=== PATIENT | male | born 1960 | race Caucasian/White ===

== ENCOUNTER 2018-01-03 12:10 | Outpatient (CLI) | payer OTHER ==
[~2018-01-03] VITALS: Ht 254 cm; Wt 108.0 kg
[~2018-01-03 12:10] MED LIST: COZAAR100 MG
== END 2018-01-03 14:47 | disposition home or self-care (01) ==
LOC: OFIC 805 12:10
DX: K21.9 Gastro-esophageal reflux disease without esophagitis (principal); R13.19 Other dysphagia; M54.2 Cervicalgia

== ENCOUNTER 2018-06-28 12:51 | Emergency (ER) | payer OTHER ==
[~2018-06-28] VITALS: Ht 177.8 cm; Wt 104.3 kg
[2018-06-28] MEDS ORDERED: HYZAAR 100-251 EACH (13:07)
== END 2018-06-28 14:40 | disposition home or self-care (01) ==
LOC: ER 12:51
DX: G44.209 Tension-type headache, unspecified, not intractable (principal)

== ENCOUNTER 2021-07-28 08:53 | Outpatient (CLI) | payer OTHER ==
[~2021-07-28 08:53] MED LIST changes: +HYZAAR 100-251 EACH
== END 2021-07-28 09:23 | disposition home or self-care (01) ==
LOC: RAD 08:53
PROVIDERS: ATTEND Urology
DX: R22.1 Localized swelling, mass and lump, neck (principal); R22.2 Localized swelling, mass and lump, trunk

== ENCOUNTER 2021-08-08 13:05 | Outpatient (CLI) | payer OTHER | END 2021-08-08 13:06 | disposition home or self-care (01) | LOC: LAB 13:05 | PROVIDERS: ATTEND Radiology Diagnostic Radiology | DX: Z12.11 Encounter for screening for malignant neoplasm of colon (principal) ==

== ENCOUNTER 2021-08-11 09:46 | Outpatient (CLI) | payer OTHER | END 2021-08-11 09:57 | disposition home or self-care (01) | LOC: TOM 09:46 | PROVIDERS: ATTEND Colon & Rectal Surgery | DX: K21.9 Gastro-esophageal reflux disease without esophagitis (principal); Z12.11 Encounter for screening for malignant neoplasm of colon; R10.32 Left lower quadrant pain ==

== ENCOUNTER 2021-10-21 06:41 | Day surgery (SDC) | payer OTHER ==
[~2021-10-21] VITALS: Ht 177.8 cm; Wt 104.3 kg
[~2021-10-21 06:41] MED LIST changes: +HYDROCHLOROTHIA25 MG PO; +ZEGERID 40 MG1 EACH PO
== END 2021-10-21 10:45 | disposition home or self-care (01) ==
LOC: CIR.AMB 06:41
PROVIDERS: ATTEND Surgery
DX: L72.0 Epidermal cyst (principal); D17.1 Benign lipomatous neoplasm of skin and subcutaneous tissue of trunk; I10 Essential (primary) hypertension; K21.9 Gastro-esophageal reflux disease without esophagitis; Z86.16 Personal history of COVID-19; Z87.891 Personal history of nicotine dependence; E66.9 Obesity, unspecified

== ENCOUNTER 2022-12-18 08:49 | Outpatient (CLI) | payer OTHER | END 2022-12-18 09:07 | disposition home or self-care (01) | LOC: TOM 08:49 | PROVIDERS: ATTEND Urology | DX: N20.0 Calculus of kidney (principal) ==

== ENCOUNTER 2023-03-30 10:51 | Emergency (ER) | payer OTHER ==
[~2023-03-30] VITALS: Ht 177.8 cm; Wt 98.0 kg
== END 2023-03-30 17:19 | disposition home or self-care (01) ==
LOC: ER 10:51
DX: M54.9 Dorsalgia, unspecified (principal)

== ENCOUNTER 2024-12-28 13:00 | Emergency (ER) | payer OTHER ==
[~2024-12-28] VITALS: Ht 175.3 cm; Wt 102.1 kg
[2024-12-28 13:46] VITALS: BP 121/77; O2SAT 99
[2024-12-28] MEDS ORDERED: CEFTRIAXONE SODIUM 1,000 MG VIAL IM ONE (16:00)
[2024-12-28 16:24] LABS: BASO % 0.2 % (0.1-1.2); EOS # 0.21 (0.04-0.54); EOS % 2.6 % (0.7-7.0); LYMPH # 2.41 (1.18-3.74); LYMPH % 29.8 % (19.3-53.1); MEAN PLATELET VOLUME 9.00 fl (9.4-12.4); MONO # 1.16 (0.24-0.82); NEUT # 4.29 (1.56-6.13); NEUT % 53.0 % (34.0-71.1); RED CELL DISTRIBUTION WIDTH 12.9 % (11.6-14.4)
[2024-12-28 16:40] LABS: MONO % 14.3 % (4.7-12.5)
[2024-12-28 16:43] LABS: GLUCOSE FASTING 94.0 mg/dL (65-100); OSMOLALITY SERUM 281.0 MOSM/KG (275-295)
[2024-12-28 16:46] LABS: BUN CREA RATIO 13.0 (7.0-25.0); CREATININE SERUM 1.35 mg/dL (0.70-1.30); GFR 53.38
[2024-12-28] MEDS ORDERED: DUI500 PO (16:54)
== END 2024-12-28 17:50 | disposition home or self-care (01) ==
LOC: ER 16:08
PROVIDERS: Preventive Medicine Public Health & General Preventive Medicine
DX: L03.116 Cellulitis of left lower limb (principal); I10 Essential (primary) hypertension